=== PATIENT | male | born 1975 | race Caucasian/White ===

== ENCOUNTER 2017-11-15 11:02 | Day surgery (SDC) | payer OTHER ==
[~2017-11-15] VITALS: Ht 180.3 cm; Wt 141.6 kg
[~2017-11-15 11:02] MED LIST: AMLO5; CITA20; Hair, Skin & N1 EACH
== END 2017-11-15 13:21 | disposition home or self-care (01) ==
LOC: ORSCSDS 11:02
PROVIDERS: Orthopaedic Surgery
PROC: 01N50ZZ Release Median Nerve, Open Approach (ICD-10-PCS; principal; 2017-11-15 12:45)
DX: G56.02 Carpal tunnel syndrome, left upper limb (principal); F41.8 Other specified anxiety disorders; I10 Essential (primary) hypertension; G47.33 Obstructive sleep apnea (adult) (pediatric); E66.9 Obesity, unspecified; Z68.41 Body mass index [BMI] 40.0-44.9, adult; Z79.899 Other long term (current) drug therapy
CPT/HCPCS: J2250

== ENCOUNTER 2018-05-25 06:34 | Day surgery (SDC) | payer OTHER ==
[~2018-05-25] VITALS: Ht 180.3 cm; Wt 135.2 kg
[~2018-05-25 06:34] MED LIST changes: +IBUP400 PO; +MULTI VITAMIN1 EACH PO; +Pepcid40 MG PO
== END 2018-05-25 08:56 | disposition home or self-care (01) ==
LOC: ORSCSDS 06:34
PROVIDERS: Orthopaedic Surgery
PROC: 01N50ZZ Release Median Nerve, Open Approach (ICD-10-PCS; principal; 2018-05-25 08:00)
DX: G56.03 Carpal tunnel syndrome, bilateral upper limbs (principal); I10 Essential (primary) hypertension; G47.33 Obstructive sleep apnea (adult) (pediatric); E66.01 Morbid (severe) obesity due to excess calories; Z68.41 Body mass index [BMI] 40.0-44.9, adult; Z79.899 Other long term (current) drug therapy
CPT/HCPCS: J2250; J2405; J7120

== ENCOUNTER → 2019-11-05 | Outpatient (CLI) | payer OTHER ==
[2019-11-05 20:15] LABS: Prostate Specific Antigen 0.952 ng/mL (0.000-4.000)
== END | disposition home or self-care (01) ==
LOC: LAB 17:36 → LAB SHORT 17:36
PROVIDERS: Hospitalist
DX: Z12.5 Encounter for screening for malignant neoplasm of prostate (principal)
CPT/HCPCS: G0103

== ENCOUNTER → 2021-09-15 | Outpatient (CLI) | payer OTHER | END | disposition home or self-care (01) | LOC: LAB SHORT 11:35 | PROVIDERS: Hospitalist | DX: Z12.5 Encounter for screening for malignant neoplasm of prostate (principal) | CPT/HCPCS: G0103 ==

== ENCOUNTER → 2024-12-03 | Outpatient (CLI) | payer OTHER ==
[2024-12-03 16:08] LABS: Anion Gap 5 mmol/L (3-11); Blood Urea Nitrogen 15 mg/dL (8-24); CHOL/HDL RATIO 4.4; CO2, Blood 32 mmol/L (21-32); Calcium, Blood 9.3 mg/dL (8.5-10.1); Chloride, Blood 103 mmol/L (98-108); Cholesterol 213 mg/dL (50-200); Glomerular Filtration Rate 92 (60-); Glucose, Blood 96 mg/dL (70-99); HDL Cholesterol 48 mg/dL (>39); LDL/HDL RATIO 2.6; Low Density Lipoprotein Chol 127 mg/dL (0-110); Potassium, Blood 3.8 mmol/L (3.5-5.5); Sodium, Blood 136 mmol/L (136-145); Triglycerides 190 mg/dL (30-160); Very Low Density Lipoprot Chol 38 mg/dL (6-32)
== END | disposition home or self-care (01) ==
LOC: LAB 08:40 → LAB SHORT 08:40
PROVIDERS: Hospitalist
DX: E11.9 Type 2 diabetes mellitus without complications (principal); I10 Essential (primary) hypertension
CPT/HCPCS: 80048; 80061; 83036

== ENCOUNTER → 2024-12-05 | Outpatient (CLI) | payer OTHER ==
[2024-12-05 15:58] LABS: Creatinine, Urine Random 201.0 mg/dL (27.00-270.00)
[2024-12-05 16:06] LABS: Microalb/Creat Ratio UR, Rand 426.866 mg/g (0.000-30.000); Microalbumin, Random Urine 858.0 mg/L (0.000-20.000)
== END ==
LOC: LAB SHORT 13:40 → LAB 13:40
PROVIDERS: Hospitalist
DX: E11.9 Type 2 diabetes mellitus without complications (principal)
CPT/HCPCS: 82043; 82570